=== PATIENT | male | born 1965 | race Caucasian/White ===

== ENCOUNTER 2017-02-03 10:24 | Emergency (ER) | payer BC ==
[2017-02-03] MEDS ORDERED: Ketorolac 60 MG/2 ML SDV IM ONE (10:45)
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
[2017-02-03] MEDS ORDERED: HYDROmorphone 1 MG/ML Syringe IM ONE (11:52)
[2017-02-03 18:36] VITALS: BP 126/88
== END 2017-02-03 12:50 | disposition home or self-care (01) ==
LOC: MW.ED 10:24
DX: S39.012A Strain of muscle, fascia and tendon of lower back, initial encounter (principal); M54.41 Lumbago with sciatica, right side; G89.29 Other chronic pain; F17.210 Nicotine dependence, cigarettes, uncomplicated; V49.9XXA Car occupant (driver) (passenger) injured in unspecified traffic accident, initial encounter
CPT/HCPCS: 96372; 99283; J1170; J1885; J2360; 99282

== ENCOUNTER 2017-02-08 06:40 | Emergency (ER) | payer OTHER, BC ==
[2017-02-08] MEDS ORDERED: Ketorolac 60 MG/2 ML SDV IM ONE (06:53)
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
[2017-02-08] MEDS ORDERED: Acetaminophen/HYDROcodone 325-10 MG Tab PO ONE (08:46)
[2017-02-08 09:08] VITALS: BP 140/80
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
== END 2017-02-08 09:05 | disposition home or self-care (01) ==
LOC: MW.ED 06:40
DX: G89.29 Other chronic pain (principal); M54.5 Low back pain; F17.210 Nicotine dependence, cigarettes, uncomplicated
CPT/HCPCS: 72131; 96372; 99283; A9270; J1885; 99282